=== PATIENT | female | born 1950 | race Two or more races ===

== ENCOUNTER 2019-06-14 10:28 | Emergency (ER) | payer OTHER ==
[~2019-06-14] VITALS: Ht 157.5 cm; Wt 51.3 kg
[~2019-06-14 10:28] MED LIST: DICLOFENAC POTA50 MG PO; NABUMETONE500 MG PO; PERCOCET 5/3251 TAB PO; TIZANIDINE HCL2 MG PO
== END 2019-06-14 11:20 | disposition home or self-care (01) ==
LOC: ER 10:28
DX: S05.12XA Contusion of eyeball and orbital tissues, left eye, initial encounter (principal); W22.8XXA Striking against or struck by other objects, initial encounter; Y93.89 Activity, other specified; Y92.018 Other place in single-family (private) house as the place of occurrence of the external cause; Y99.8 Other external cause status

== ENCOUNTER → 2019-08-29 | Outpatient (CLI) | payer OTHER ==
[~2019-08-29] MED LIST changes: +NORFLEX100MG PO
== END | disposition home or self-care (01) ==
LOC: RAD 13:17
DX: M25.561 Pain in right knee (principal); M79.641 Pain in right hand; M54.2 Cervicalgia

== ENCOUNTER → 2019-09-05 | Outpatient (CLI) | payer OTHER | END | disposition home or self-care (01) | LOC: RAD 12:39 | DX: M54.5 Low back pain (principal); M25.551 Pain in right hip; M25.552 Pain in left hip ==

== ENCOUNTER 2020-02-06 12:13 | Emergency (ER) | payer OTHER ==
[~2020-02-06] VITALS: Ht 160 cm; Wt 56.7 kg
== END 2020-02-06 13:38 | disposition home or self-care (01) ==
LOC: ER 12:13
DX: M54.5 Low back pain (principal)